=== PATIENT | male | born 1945 | race Caucasian/White ===

== ENCOUNTER → 2020-08-22 | Outpatient (CLI) | payer OTHER, MEDICARE ==
[~2020-08-22] VITALS: Ht 172.7 cm; Wt 117.9 kg
[~2020-08-22] MED LIST: ASA81BEC PO; CRESTOR40 MG PO; ENTRESTO 24 MG1 EACH PO; KLOR-CON M2020 MEQ PO; LASIX 80 MG TAB80 MG PO; METOPROLOL TART25 MG PO; OMEPRAZOLE 20 M20 M1 PO; PLAVIX 75 MG TA75 MG PO; PREDNISONE50 MG PO; ZETIA10 MG PO
== END | disposition home or self-care (01) ==
LOC: GI 10:15
PROVIDERS: ATTEND Internal Medicine Gastroenterology
DX: Z12.11 Encounter for screening for malignant neoplasm of colon (principal); K57.30 Diverticulosis of large intestine without perforation or abscess without bleeding; K50.90 Crohn's disease, unspecified, without complications; I10 Essential (primary) hypertension; E78.00 Pure hypercholesterolemia, unspecified; I25.2 Old myocardial infarction; E11.9 Type 2 diabetes mellitus without complications; Z85.46 Personal history of malignant neoplasm of prostate; Z85.828 Personal history of other malignant neoplasm of skin; Z95.0 Presence of cardiac pacemaker
CPT/HCPCS: 62110; 62900